=== PATIENT | female | born 1965 | race Caucasian/White ===

== ENCOUNTER → 2021-09-23 09:04 | Outpatient (CLI) | payer OTHER, SELFPAY ==
--- NOTE | 2021-09-23 | DI.US.S_ITS ---
PROCEDURE: US ABDOMEN COMPLETE INDICATIONS: NAUSEA AND VOMITING TECHNIQUE: Real-time scanning was performed of the abdominal and retroperitoneal organs, with image documentation. COMPARISON: None. FINDINGS: Liver: Liver is normal in size and homogeneous in echotexture. Liver is mildly echogenic. Gallbladder: Gallbladder is sonographically normal. No gallstones. No gallbladder wall thickening. No pericholecystic fluid. No sonographic Garcia sign. Biliary ducts: Intrahepatic bile ducts are non-dilated. Extrahepatic bile duct caliber measures 7.5 mm. Normal is 6-7 mm or less in diameter, or 10 mm or less post-cholecystectomy. Pancreas: Not visualized due to bowel gas and cannot be evaluated. Spleen: Spleen is normal in size and homogeneous in echotexture. Kidneys: Kidneys are normal in size and echotexture. Right kidney measures 11.2 cm long; left kidney measures 11.1 cm long. No hydronephrosis or nephrolithiasis. No solid masses. Aorta: Visualized aorta is normal in caliber at less than 3 cm. Iliacs: Proximal common iliac arteries are normal in caliber at less than 2.5 cm. IVC: Intrahepatic inferior vena cava is patent. Miscellaneous: No free abdominal fluid. IMPRESSION: Slight common bile duct dilatation to 7.5 millimeters. Recommend correlation with clinical and laboratory data to exclude biliary obstruction. If there is clinical concern for biliary obstruction MRCP could be performed for additional evaluation. Dictated by: Gloria Parmar MD, PhD on 09/23/2021 at 14:22 Approved by: Gloria Parmar MD, PhD on 09/23/2021 at 14:25
== END ==
PROVIDERS: PCP Family Medicine; Referring Provider Internal Medicine Gastroenterology; Visit Provider Internal Medicine Gastroenterology
DX: R11.2 Nausea with vomiting, unspecified (principal); R10.13 Epigastric pain
CPT/HCPCS: 76700

== ENCOUNTER → 2021-11-07 09:22 | Outpatient (CLI) | payer OTHER, SELFPAY ==
[2021-11-07 10:47] LABS: COVID19 -Nasal RAPID Negative (Negative)
== END ==
PROVIDERS: PCP Family Medicine; Visit Provider Surgery
DX: Z01.812 Encounter for preprocedural laboratory examination (principal); Z20.822 Contact with and (suspected) exposure to COVID-19
CPT/HCPCS: 87635; C9803

== ENCOUNTER 2021-11-10 11:20 | Day surgery (SDC) | payer OTHER, SELFPAY ==
--- NOTE | 2021-11-10 | PATH_ITS ---
[facility] Accession Number: [id number] . 01 Material submitted: . PART A: duodenum - DUODENUM BIOPSY PART B: gastrointestinal site - ANTRUM BIOPSY PART C: gastrointestinal site - GASTRIC POLYPS PART D: colon - RANDOM COLON BIOPSIES . 01 Clinical history: . SDC . 01 Diagnosis: A. Duodenum, Biopsy: Duodenal mucosa with no diagnostic abnormality. Negative for active inflammation, features of sprue, dysplasia, or malignancy. . B. Antrum, Biopsy: Gastric antral mucosa with mild chronic inflammation. Negative for Helicobacter organisms by immunohistochemistry. Negative for intestinal metaplasia. Negative for dysplasia or malignancy. . C. Gastric Polyps, Biopsies: Fundic gland polyps with mild chronic inflammation. Negative for Helicobacter organisms by immunohistochemistry. Negative for intestinal metaplasia. Negative for dysplasia or malignancy. . D. Random Colon, Biopsies: Colonic mucosa with no diagnostic abnormality. Negative for active, chronic, and microscopic colitis. Negative for dysplasia and malignancy. . [facility] 11/17/2021 1225 Local . 01 Electronically signed: . Olegario Zelaya MD, PhD, Pathologist NPI- [id number] . 01 Gross description: . Part A: DUODENUM BIOPSY: Received in formalin are 2 fragment(s) of prather, soft tissue measuring 0.5 x 0.2 x 0.1 cm to 0.5 x 0.1 x 0.1 cm submitted entirely in 1 cassette(s) Part B: ANTRUM BIOPSY: Received in formalin are 2 fragment(s) of prather, soft tissue measuring 0.3 x 0.1 x 0.1 cm to 0.2 x 0.1 x 0.1 cm submitted entirely in 1 cassette(s) Part C: GASTRIC POLYPS: Received in formalin are multiple fragment(s) of prather, soft tissue measuring 0.7 x 0.5 x 0.1 cm in aggregate submitted entirely in 1 cassette(s) Part D: RANDOM COLON BIOPSIES: Received in formalin is 1 fragment(s) of prather, soft tissue measuring 0.3 x 0.1 x 0.1 cm submitted entirely in 1 cassette(s) /CPE 11/11/2021 0915 Local . 01 Microscopic: . B. An immunohistochemical stain was performed to evaluate for Helicobacter organisms and is negative. The control stain showed appropriate reactivity. . C. An immunohistochemical stain was performed to evaluate for Helicobacter organisms and is negative. The control stain showed appropriate reactivity. . * This test was developed and its performance characteristics determined by [facility]. It has not been cleared or approved by the U.S. Food and Drug Administration. The FDA has determined that such clearance or approval is not necessary. This test is used for clinical purposes. It should not be regarded as investigational or for research. . 01 Pathologist provided ICD-10: K29.70, K31.7, R19.4 . 01 CPT . 056192, 268158, 536527, 675284, V66034 Performed at: 01 [facility] [address] [place] [id number] MD Irving Arias MD Phone: [phone]
[2021-11-10 14:05] VITALS: BP 130/77; PULSE 83; RESP 12; TEMP 36.1; O2SAT 99; BMI 38.4
[2021-11-10] MEDS: SODIUM CHLORIDE 0.9% 1,000 ML 84 ML IV (14:11)
--- NOTE | 2021-11-10 16:28 | P.HP_ITS ---
History of Present Illness History of Present Illness Date Patient Seen: 11/10/21 Time Patient Seen: 16:28 Chief complaint: SDC Narrative: I reviewed my recent office note from August. No significant changes. The microcytosis was present but no anemia. Patient History Family & Social History Social History: household members none Tobacco & Substance use: Smoking Status Never smoker alcohol intake never Substance Use Type does not use Meds Home Medications and Allergies Home Medications Medication Instructions Recorded Confirmed Type atenolol 50 mg tablet 25 mg PO DAILY 11/10/21 11/10/21 History diltiazem HCl 120 mg 120 mg PO BID 11/10/21 11/10/21 History capsule,extended release 24 hr levocetirizine 5 mg tablet 5 mg PO DAILY 11/10/21 11/10/21 History levothyroxine 75 mcg tablet 75 mcg PO DAILY 11/10/21 11/10/21 History sucralfate 1 gram tablet 1 g PO PRN PRN Stomach Upset 11/10/21 11/10/21 History Allergies Allergy/AdvReac Type Severity Reaction Status Date / Time codeine Allergy Hallucinati Verified 11/10/21 14:01 ng Review of Systems Review of Systems ROS: Yes All systems reviewed with the patient and are negative except as oth erwise documented Exam Vital Signs (past 8 hours): - 11/10/21 14:05 Temperature 96.9 F L Pulse Rate 83 Respiratory Rate 12 Blood Pressure 130/77 Pulse Oximetry 99 Oxygen Delivery Method Room Air Oxygen Flow Rate 0 Oxygen Delivery Method Room Air Oxygen Flow Rate 0 Const General: cooperative HENMT Head: normal to inspection Eyes General: appearance normal, both eyes and all related structures Neck Neck: normal visual inspection Chest Chest: normal inspection of the chest Resp Effort & Inspection: normal respiratory effort Cardio Rate: regular rate GI Inspection: normal to inspection Skin General: no rashes or lesions noted Neuro General: patient alert and patient awake Extrem General: normal to inspection and no pedal edema Psych Appearance: grossly normal Assessment & Plan Assessment & Plan narrative: 55-year-old female with intermittent nausea vomiting abdominal pain altered bowel habit. EGD and colonoscopy are pursued today. Time Spent With Patient Critical Care time: I spent a total of [] minutes of critical care time on this patient's care today; this time is exclusive of procedural time.
--- NOTE | 2021-11-10 16:31 | PM.PREOP ---
Pre-operative Note COVID-19 COVID-19 status: Negative Result date/Date tested (Pos, Neg/Pending): 11/07/21 Criteria for continued procedure: Possibility delay results in more complex future surgery or treatment Interval Note History & Physical reviewed/Exam performed by Physician: Yes Changes to H&P: No ASA Class (for procedural sedation): II
--- NOTE | 2021-11-10 17:09 | PM.OP.EC ---
Operative Date/Time/Diagnoses Date of procedure: 11/10/21 Time of procedure: 17:09 Pre-op diagnosis: Nausea vomiting abdominal pain altered bowel habit Post-op diagnosis: same Procedure & Clinicians Study performed: EGD with biopsies and colonoscopy with biopsies Same procedure as scheduled: Yes Indications: Nausea vomiting abdominal pain altered bowel habit Surgeon: Santos Lujan Procedure Notes SCOAP/Timeout: Done Procedure in detail: After the risks and benefits were explained, written and verbal informed consent was obtained. The patient was brought into the procedure room and placed into the left lateral decubitus position. Please see nurse instructional technology coordinator notes for sedation details. The scope was introduced into the mouth through the bite block and advanced under direct visualization to the 2nd portion of the duodenum. The scope was slowly withdrawn carefully examining the mucosa for any defects or lesions. Retroflexed views were accomplished in the stomach. The stomach was decompressed, the scope was then removed from the patient who tolerated the procedure well. The patient was then turned around, a digital rectal examination was accomplished. The scope was introduced into the rectum and advanced to the cecum as identified by the appendiceal orifice and ileocecal valve. I attempted to interrogate the terminal ileum but it seemed that there was possibly a mild stenosis at the very terminal aspect of TI and it did not allow entry of the adult colonoscope. I therefore withdrew the slowly evaluate the colonic mucosa for any pathology. Multiple direct views were made through the dentate line for exclusion of pathology the colon was decompressed scope removed the patient who tolerated the procedure well. Adult colonoscope Bowel prep adequate Scope withdrawal time: 14 minutes Sedation minutes: 34 Complications: none Impression: 1. Duodenum: This was visually normal from the bulb through to the 2nd portion. Random D2 biopsies were taken for exclusion of sprue. 2. Stomach: Patient had no ulcers, mass lesions or outlet obstruction. There was a mild gastropathy appreciated and biopsies were taken from the antrum for exclusion of Helicobacter. Retroflexed views of the LES disclosed some small polyps in the proximal stomach. A couple of these were sampled for histopathologic analysis. No additional gastric pathology appreciated throughout. 3. Esophagus: The squamocolumnar junction correlated with the top of the gastric folds. GEJ was at about 36 cm from the incisors. No acute erosive changes no strictures no mass lesions. Subtle sliding hiatal hernia was noted. 4. Terminal ileum: The very terminal aspect of TI seem to demonstrate fairly normal-appearing villi. I however could not get the adult colonoscope up inside TI proper. When I 1st evaluated the area there appeared to be a small amount of erythema and even possibly blood prior to attempt at ileal intubation. After the initial attempt, it looked as though the tip of the scope had caused a small mucosal laceration right at the terminal ileal orifice. I elected to not continue efforts up into the TI proper. 5. Colon: There was no evidence of any macroscopic colitis. Random colon biopsies were taken for exclusion of microscopic disease. No significant polyps mass lesions or inflammatory features identified throughout. Endoscopic diagnosis 1. Mild gastropathy 2. Subtle small sliding hiatal hernia 3. Diminutive gastric polyps 4. Possible terminal ileal stenosis 5. Otherwise visually unremarkable colonoscopy Post-procedure Plan for aftercare: 1. Await histopathology. 2. Contingent on histopathology, further imaging is indicated to better evaluate what is happening at the terminal ileum. (CT enterography will be the next step). 3. If all of this is unrevealing and does not offer explanation for symptoms, MRCP will be arranged (the ultrasound report showing mild biliary dilatation is noted in the chart). Disposition: PACU
[2021-11-10 17:14] VITALS: BP 117/71; PULSE 76; RESP 14; TEMP 36.7; O2SAT 98
[2021-11-10 17:19] VITALS: BP 128/78; PULSE 87; RESP 16; O2SAT 97
[2021-11-10 17:23] VITALS: BP 124/86; PULSE 78; RESP 16; O2SAT 99
[2021-11-10 17:34] VITALS: BP 133/88; PULSE 78; RESP 14; TEMP 36.5; O2SAT 100
--- NOTE | 2021-11-10 17:46 | SUR.PHASEII ---
pt given discharge instructions. pt denies any complaints.. States she understands discharge instructions.
== END 2021-11-10 17:54 | disposition home or self-care (01) ==
PROVIDERS: PCP Family Medicine; Referring Provider Internal Medicine Gastroenterology; Visit Provider Internal Medicine Gastroenterology
PROC: 0DJ08ZZ Inspection of Upper Intestinal Tract, Via Natural or Artificial Opening Endoscopic (ICD-10-PCS; CPT 43235; principal; 2021-11-10 14:30)
PROC: 0DJD8ZZ Inspection of Lower Intestinal Tract, Via Natural or Artificial Opening Endoscopic (ICD-10-PCS; CPT 45378; 2021-11-10 14:30)
DX: R10.9 Unspecified abdominal pain (principal); R11.2 Nausea with vomiting, unspecified; R19.4 Change in bowel habit; K44.9 Diaphragmatic hernia without obstruction or gangrene; K31.9 Disease of stomach and duodenum, unspecified; K31.7 Polyp of stomach and duodenum; K29.50 Unspecified chronic gastritis without bleeding
CPT/HCPCS: 45380; 43239; J2704; J3010

== ENCOUNTER → 2021-12-08 10:53 | Outpatient (CLI) | payer OTHER, SELFPAY ==
[2021-12-08 12:40] LABS: BUN Creatinine Ratio 12.6 (6-22); Blood Urea Nitrogen 11 mg/dL (7-17); Estimated Glomerular Filt Rate > 60 mL/min (>60)
== END ==
PROVIDERS: PCP Family Medicine; Referring Provider Internal Medicine Gastroenterology; Visit Provider Internal Medicine Gastroenterology
DX: R10.13 Epigastric pain (principal); R19.8 Other specified symptoms and signs involving the digestive system and abdomen; R11.2 Nausea with vomiting, unspecified
CPT/HCPCS: 36415; 82565; 84520

== ENCOUNTER → 2021-12-09 11:18 | Outpatient (CLI) | payer OTHER, SELFPAY ==
--- NOTE | 2021-12-09 | DI.CT.S_ITS ---
PROCEDURE: CT ABDOMEN PELVIS W CON INDICATIONS: Nausea with vomiting, unspecified TECHNIQUE: After the administration of oral and IV contrast, axial sections were acquired from the lung bases to the pubic symphysis. Coronal and sagittal reformats were performed. For radiation dose reduction, the following was used: automated exposure control, adjustment of mA and/or kV according to patient size. COMPARISON: [facility], , US ABDOMEN COMPLETE, 09/23/2021, 10:45. FINDINGS: Image quality: Excellent. Lung bases: Unremarkable. Heart: No significant findings. ABDOMEN: Liver: No focal lesion. Gallbladder: Not distended. Biliary ducts: Unremarkable. Pancreas: Unremarkable. Spleen: Unremarkable. Adrenal Glands: Unremarkable. Kidneys and Ureters: No hydronephrosis. Stomach and Bowel: No small bowel obstruction. Possible narrowing at the terminal ileum. Possible narrowing with out significant upstream dilatation, (, ). Diverticulosis. Normal appendix. Peritoneum: No abnormal intraperitoneal fluid. No free air. Ventral Wall: No hernia. Abdominal Nodes: No retroperitoneal or mesenteric adenopathy by size criteria. Vessels: Aorta and inferior vena cava are normal in size. PELVIS: Pelvic Organs: Unremarkable. Bladder: Unremarkable. Pelvic Nodes: No enlarged lymph nodes. Miscellaneous: No inguinal hernias are seen. Bones: No suspicious lesion. DDD. No compression fracture. IMPRESSION: 1. No small bowel obstruction. 2. Possible narrowing at the terminal ileum. This could be peristalsis. Lower suspicion for Crohn's disease. 3. Diverticulosis. No diverticulitis. No free fluid. Dictated by: Suhas Fuentes M.D. on 12/09/2021 at 13:57 Approved by: Suhas Fuentes M.D. on 12/09/2021 at 14:05
== END ==
PROVIDERS: PCP Family Medicine; Referring Provider Internal Medicine Gastroenterology; Visit Provider Internal Medicine Gastroenterology
DX: R19.8 Other specified symptoms and signs involving the digestive system and abdomen (principal); R11.2 Nausea with vomiting, unspecified; R10.13 Epigastric pain; K57.90 Diverticulosis of intestine, part unspecified, without perforation or abscess without bleeding
CPT/HCPCS: 74177

== ENCOUNTER → 2022-01-10 13:25 | Outpatient (CLI) | payer OTHER, SELFPAY | PROVIDERS: PCP Family Medicine; Referring Provider Internal Medicine Gastroenterology; Visit Provider Internal Medicine Gastroenterology | DX: R11.2 Nausea with vomiting, unspecified; R19.8 Other specified symptoms and signs involving the digestive system and abdomen; Z53.20 Procedure and treatment not carried out because of patient's decision for unspecified reasons ==

== ENCOUNTER 2022-04-15 07:32 | Day surgery (SDC) | payer OTHER, SELFPAY ==
[2022-04-13 11:49] VITALS: BMI 39.4
[2022-04-15] VITALS (7 sets, daily range): BP systolic 123–130; BP diastolic 57–78; PULSE 66–86; RESP 12–129; TEMP 36.1–36.8; O2SAT 96–99; BMI 39.4
--- NOTE | 2022-04-15 | PATH_ITS ---
[facility] Accession Number: [id number] No. of containers..01 Tissue . 01 Material submitted: . gallbladder - GALLBLADDER . 01 Diagnosis: Gallbladder, Cholecystectomy: Changes consistent with chronic cholecystitis. Cholelithiasis. Negative for dysplasia and malignancy. . [facility] 04/21/2022 1531 Local . 01 Electronically signed: . Michaelle Silver MD, Pathologist NPI- [id number] . 01 Gross description: . Received in formalin labeled gallbladder is a 7.4 cm in length by up to 2.2 cm in diameter unopened intact gallbladder with a green-connolly smooth and glistening anterior serosal surface and roughened posterior bed. The wall is thickened and indurated, ranging up to 0.5 cm thick. The mucosa is green-black and granular. There are no calculi found within the lumen. The cystic duct margin is marked with blue ink. Object Oriented Developer sections are submitted in A1. ([id number]) /MRV 04/16/2022 1722 Local . 01 Pathologist provided ICD-10: K80.50 . 01 CPT . 981178 Specimen Comment: A courtesy copy of this report has been sent to [phone] Performed at: 01 [facility] [address] [place] [address] [address] [facility], [place], [place] [id number] MD Irving Arias MD Phone: [phone]
[2022-04-15] MEDS: LACTATED RINGERS 1,000 ML 100 ML IV (08:02)
[2022-04-15] MEDS: ACETAMINOPHEN 325 MG TABLET 975 MG PO ×2 (09:08→09:09)
--- NOTE | 2022-04-15 09:46 | PM.HP.1 ---
History of Present Illness History of Present Illness Date Patient Seen: 04/15/22 Time Patient Seen: 09:46 Chief complaint: SDC Narrative: 56-year-old woman with symptoms and radiographic findings consistent with biliary colic here for elective laparoscopic cholecystectomy today. Please refer to the H and P from February 2022 for further detail. No interval change in health. Patient History Medical History (Updated 04/13/22 @ 11:57 by Shanna Gabriel RN) Arthritis Eczema Hypothyroid Irregular heart beat Trigger finger Surgical History (Updated 04/13/22 @ 11:58 by Shanna Gabriel RN) H/O: hysterectomy (02/21/19) History of ankle surgery (09/23/97) Hx of colonoscopy (11/10/21) Hx of dilation and curettage (2018) Family & Social History Family History Father Hypertension Diabetes mellitus Cancer Mother Hypertension Diabetes mellitus Sister Ovarian cancer Diabetes mellitus Spouse Diabetes mellitus Social History: household members none lives independently Yes Tobacco & Substance use: Smoking Status Never smoker alcohol intake never Substance Use Type does not use Meds Home Medications and Allergies Home Medications Medication Instructions Recorded Confirmed Type atenolol 50 mg tablet 25 mg PO DAILY 11/10/21 04/15/22 History diltiazem HCl 120 mg 120 mg PO BID 11/10/21 04/15/22 History capsule,extended release 24 hr levocetirizine 5 mg tablet 5 mg PO DAILY 11/10/21 04/15/22 History levothyroxine 75 mcg tablet 75 mcg PO DAILY 11/10/21 04/15/22 History sucralfate 1 gram tablet 1 g PO PRN PRN Stomach Upset 11/10/21 04/15/22 History Allergies Allergy/AdvReac Type Severity Reaction Status Date / Time codeine Allergy Hallucinati Verified 11/10/21 14:01 ng Exam Vital Signs (past 8 hours): - 04/15/22 08:23 Temperature 97 F L Pulse Rate 70 Respiratory Rate 16 Blood Pressure 124/75 Pulse Oximetry 99 Oxygen Delivery Method Room Air Oxygen Delivery Method Room Air Narrative Exam Narrative: General adult woman alert oriented no acute distress Abdomen soft nontender nondistended Assessment & Plan Assessment and plan (1) Biliary colic: Status: Acute Assessment & Plan narrative: 56-year-old woman with symptoms and radiographic findings consistent with biliary colic here for elective laparoscopic cholecystectomy. Overview of the operation was discussed again with the patient. Operative risks including infection, hemorrhage, damage to surrounding structures, bile duct injury, conversion to open were discussed. Her questions have been answered she is in agreement with this plan. She provides her written and verbal consent to proceed. Time Spent With Patient Critical Care time: I spent a total of [] minutes of critical care time on this patient's care today; this time is exclusive of procedural time.
[2022-04-15] MEDS: CEFAZOLIN 2 GM/100 ML PREMIX 100 ML IV (10:05)
--- NOTE | 2022-04-15 10:39 | SUR.OPER ---
Supine on padded OR bed, head on pillow, safety belt at thigh, left arm padded and tucked at side. Right arm secured on padded arm board <90 degrees abduction. Legs uncrossed. Padded footboard in place. Tape over blanket to secure lower legs.
[2022-04-15] MEDS: BUPIVACAINE 0.5% W/ EPI (PF) 30 ML VIAL INJ (11:02)
--- NOTE | 2022-04-15 11:16 | P.OP_ITS ---
Operative Date/Time/Diagnoses Date of procedure: 04/15/22 Time of procedure: 11:16 Pre-op diagnosis: biliary colic Post-op diagnosis: same Procedure & Clinicians Procedure: laparoscopic cholecystectomy Same procedure as scheduled: Yes Indications: 56F with symptomas and radiographic signs consistent with biliary colic Surgeon: Pito Parham Operative Notes Findings: Critical view of safety established. Specimen(s): other (gallbladder) Estimated Blood Loss (mL): 25 Procedure in detail: The patient was placed supine on the table and bilateral lower extremity compression devices were applied. Anesthesia was induced they were intubated with an endotracheal tube and received 2g of Ancef. A time-out was performed. They were prepped and draped in sterile fashion. An infraumbilical incision was made. The fascia was elevated incised and the abdomen was entered atraumatically. A blunt tip 12mm balloon trocar was then inserted, pneumoperit oneum was established and inspection of the abdomen demonstrated no evidence of injury. They were placed head up and right side up and then a 11 mm port was placed high in the epigastrium and two 5mm in the right upper quadrant. The gallbladder was grasped by the fundus and retracted over the liver and retracted laterally by the infundibulum.Gallbladder was grossly normal in its appearance no evidence of actue cholecystitis. Using electrocautery the lateral plane between the gallbladder and the liver was opened towards the fundus. The gallbladder was then retracted laterally and the medial plane was developed in the same manner. With the gallbladder mobilized the bottom of the cystic plate was visualized. The hepatocystic triangle was meticulosly skeletonized with blunt dissection of fat and fibrous tissue from both the front and the back. Only two structures were then clearly seen entering the gallbladder the cystic duct and the cystic artery. With the critical view of safety fully established the cystic duct was clipped twice proximally and once distally using the 10 mm Weck hemoclip applied under direct visualization and then sharply divided. The cystic artery was divided in the same fashion. The gallbladder was removed from the liver bed using electro cautery. The liver bed was then inspected for hemostasis and this was achieved. The abdomen was irrigated with sterile saline and inspection was made that showed the clips in good position. The specimen was removed using Endo-Catch. The abdomen was desufflated. The umbilical fascia was closed with 0 Vicryl in a [id number] fashion under direct visualization. Skin incisions were irrigated and closed with 4-0 Monocryl. 30 ml of 0.25% bupivacaine was infiltrated into the subcutaneous tissue of the inc isions. The wounds were sealed with Dermabond. Patient emerged from anesthesia was extubated and transferred to recovery in stable condition. The sponge and instrument count at the end of the operation was correct. Complications: none Post-operative Condition: stable Disposition: same day surgery
[2022-04-15] MEDS: OXYCODONE IR 5 MG TABLET PO (11:31)
[2022-04-15] MEDS: ONDANSETRON 4 MG/2 ML INJ IV (11:46)
== END 2022-04-15 12:19 | disposition home or self-care (01) ==
PROVIDERS: PCP Family Medicine; Referring Provider Surgery; Visit Provider Surgery
PROC: 0FT44ZZ Resection of Gallbladder, Percutaneous Endoscopic Approach (ICD-10-PCS; CPT 47562; principal; 2022-04-15 09:15)
DX: K80.10 Calculus of gallbladder with chronic cholecystitis without obstruction (principal)
CPT/HCPCS: 47562; 82962; J0690; J1100; J1885; J2405; J2704; J3010

== ENCOUNTER → 2023-02-03 10:29 | Outpatient (CLI) | payer OTHER, SELFPAY ==
--- NOTE | 2023-02-03 | DI.RAD.S_ITS ---
PROCEDURE: XR KNEE RT 3V INDICATIONS: KNEE PAIN TECHNIQUE: 3 views of the knee were acquired. COMPARISON: None. FINDINGS: Bones: No fractures or dislocations. No suspicious bony lesions. Soft tissues: No joint effusion. No suspicious soft tissue calcifications. IMPRESSION: No acute bony abnormality or significant effusion. Approved by: Peter Gomez M.D. on 02/03/2023 at 12:40
--- NOTE | 2023-02-03 | DI.RAD.S_ITS ---
PROCEDURE: XR KNEE LT 3V INDICATIONS: KNEE PAIN TECHNIQUE: 3 views of the knee were acquired. COMPARISON: None. FINDINGS: Bones: No fractures or dislocations. No suspicious bony lesions. Moderate medial lateral compartmental joint space narrowing medial marginal osteophyte present. Soft tissues: Small joint effusion. No suspicious soft tissue calcifications. IMPRESSION: Moderate osteoarthritis with small joint effusion Dictated by: Peter Gomez M.D. on 02/03/2023 at 10:46 Approved by: Peter Gomez M.D. on 02/03/2023 at 10:58
== END ==
PROVIDERS: PCP Family Medicine; Referring Provider Family Medicine; Visit Provider Family Medicine
DX: M17.12 Unilateral primary osteoarthritis, left knee (principal); M25.569 Pain in unspecified knee; M25.462 Effusion, left knee
CPT/HCPCS: 73562

== ENCOUNTER → 2023-05-19 15:40 | Outpatient (CLI) | payer OTHER, SELFPAY ==
--- NOTE | 2023-05-19 15:43 | DI.RAD.S_ITS ---
PROCEDURE: XR WRIST LT MIN 3V INDICATIONS: pain in left wrist, pain in right ankle/foot TECHNIQUE: 3 views of the wrist were acquired. COMPARISON: None. FINDINGS: Bones: No fractures or dislocations. Normal alignment. No suspicious bony lesions. Soft tissues: No suspicious soft tissue calcifications. IMPRESSION: No acute bony abnormality. If clinical symptoms persist, consider repeat radiograph in 10-14 days versus cross-sectional imaging. Dictated by: Caity Camejo M.D. on 05/19/2023 at 22:02 Approved by: Caity Camejo M.D. on 05/19/2023 at 22:02
--- NOTE | 2023-05-19 15:43 | DI.RAD.S_ITS ---
PROCEDURE: XR ANKLE RT MIN 3V INDICATIONS: pain in left wrist, pain in right ankle/foot TECHNIQUE: 3 views of the ankle were acquired. COMPARISON: None. FINDINGS: Bones: Lateral surgical plate and screw fixation of the distal tibia and ORIF of the medial malleolus is intact with no perihardware lucency to suggest hardware loosening. No fractures or dislocations. Ankle mortise is normally aligned on nonweightbearing view. No suspicious bony lesions. Soft tissues: No tibiotalar joint effusion. Achilles tendon appears normal. Small plantar and Achilles calcaneal enthesophytes. IMPRESSION: 1. No acute bony abnormality or significant effusion. 2. ORIF of the medial and lateral malleoli is intact without complication. Dictated by: Caity Camejo M.D. on 05/19/2023 at 21:46 Approved by: Caity Camejo M.D. on 05/19/2023 at 21:48
== END ==
LOC: RAD 15:41
PROVIDERS: PCP Family Medicine; Referring Provider Family Medicine; Visit Provider Family Medicine
DX: M25.571 Pain in right ankle and joints of right foot (principal); S82.51XD Displaced fracture of medial malleolus of right tibia, subsequent encounter for closed fracture with routine healing; M25.532 Pain in left wrist; X58.XXXD Exposure to other specified factors, subsequent encounter
CPT/HCPCS: 73110; 73610

== ENCOUNTER → 2024-01-05 15:28 | Outpatient (CLI) | payer OTHER, SELFPAY ==
--- NOTE | 2024-01-05 15:38 | DI.MRI.S_ITS ---
PROCEDURE: MR KNEE LT WO CON INDICATIONS: PAIN IN LEFT KNEE TECHNIQUE: Noncontrast sagittal PD fast spin echo and T2 fast spin echo with fat saturation, sagittal 3-D FLASH with fat saturation; coronal T1 spin echo and PD fast spin echo with fat saturation, and axial PD fast spin echo with fat saturation through the knee. COMPARISON: None. FINDINGS: Image quality: Excellent. Menisci: Peripheral displacement of medial meniscus bowing medial collateral ligament is seen. Complex oblique tear involving anterior horn, body and posterior horn of medial meniscus is seen extending to inferior articulating surface. The lateral meniscus is intact. The meniscal root ligaments appear intact. Cruciate ligaments: The anterior cruciate ligament is thickened. The posterior cruciate ligament is intact. Medial structures: The medial collateral ligament appears moderately thickened with intrasubstance T2 hyperintense signal and surrounding soft tissue edema. Visualized portions of the pes anserinus tendons appear normal. No abnormal bursal fluid. Lateral structures: The lateral collateral ligament, long and short heads of the biceps femoris tendon appear intact. The popliteus tendon appears normal. Iliotibial band appears normal. Anterior structures: Distal quadriceps tendinosis at its superior patellar insertion. The patellar tendon is intact. Patellar alignment is normal. No femoral trochlear dysplasia or ventral trochlear prominence. No edema in the infrapatellar fat pad. 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 Marrow edema is seen in weight-bearing portion of medial tibial plateau and adjacent medial femoral condyle without discrete fracture line suggestive of osteochondral injuries. Joint space: There is moderate knee joint fluid. There is a small popliteal cyst. Normal appearing synovial plicae are incidentally noted. IMPRESSION: 1. Peripheral displacement of medial meniscus bowing medial collateral ligament with complex oblique tear involving entire medial meniscus extending to inferior articulating surface. The lateral meniscus is intact. 2. Suggestion of low-grade ACL sprain. No ACL rupture. The PCL is intact. 3. Moderate grade sprain/partial-thickness tear involving medial collateral ligament. LCL is intact. 4. Distal quadriceps tendinosis. 5. [id number] tricompartmental osteoarthritis and chondromalacia most notably in medial femoral tibial compartment. No acute fracture or dislocation. Small osteochondral injuries are noted in medial femoral tibial compartment with surrounding edema. 6. Moderate joint effusion, no loose bodies. Small popliteal cyst. Dictated by: Rishabh Partida M.D. on 01/06/2024 at 10:58 Approved by: Rishabh Partida M.D. on 01/06/2024 at 11:03
== END ==
LOC: MRI 15:37
PROVIDERS: PCP Family Medicine; Referring Provider Family Medicine; Visit Provider Family Medicine
DX: S83.232A Complex tear of medial meniscus, current injury, left knee, initial encounter (principal); S83.422A Sprain of lateral collateral ligament of left knee, initial encounter; M17.12 Unilateral primary osteoarthritis, left knee; M94.262 Chondromalacia, left knee; M25.562 Pain in left knee; M25.462 Effusion, left knee; M71.22 Synovial cyst of popliteal space [Baker], left knee
CPT/HCPCS: 73721